=== PATIENT | male | born 1975 | race Asian ===

== ENCOUNTER 2018-06-05 18:29 | Emergency (ER) | payer OTHER, SELFPAY ==
[2018-06-05 18:31] VITALS: BP 131/83; PULSE 82; RESP 16; TEMP 36.6; O2SAT 98; BMI 28.3
--- NOTE | 2018-06-05 19:21 | EKG12_ITS ---
Test Reason : SOB Blood Pressure : / mmHG Vent. Rate : 068 BPM Atrial Rate : 068 BPM P-R Int : 130 ms QRS Dur : 084 ms QT Int : 398 ms P-R-T Axes : 061 038 054 degrees QTc Int : 423 ms Normal sinus rhythm Normal ECG Confirmed by SALLY KIMBROUGH MD ([id number]), desk editor MATT SEVERINO ([id number]) on 06/06/2018 1:12:54 PM Referred By: FRANTZ Confirmed By:SALLY KIMBROUGH MD
--- NOTE | 2018-06-05 19:24 | ED.DCSUM_ITS ---
- ER Visit Summary Date of Service: 06/05/18 Chief Complaint: Burning lung discomfort after a chemical exposure at work History of Present Illness: The patient is a 42 M past medical history of thyroid cancer prior thyroidectomy. 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 Really denies any significant shortness of breath. He does not think he has been wheezing. He denies chest pain of the burning. No recent exertional chest pain or exertional dyspnea. He denies any fever. No significant cough. Physical Examination: Middle-aged male no acute distress vital signs are stable afebrile. He does not look septic or toxic. Pulse ox 90% room air no hypoxia. H EENT exam unremarkable neck nontender. Lungs clear to auscultation bilaterally. No distress. No labored breathing. Heart regular rate and rhythm no murmur. Abdomen soft nontender. Extremities moves all 4. Calves are nontender. Neurologically is awake alert with no focal motor deficits. Test Results: EKG shows Emergency Department Course and Treatment: Clinically and historically I think this is a lung irritation from a chemical exposure. Treatment Plan: Prednisone daily for 3 days. Follow-up with [facility]. Disposition: Discharge Impression: Lung irritation secondary to chemical exposure Workers comp injury This note was generated with [employer] dictation software. It may contain incorrect words, spelling, and punctuation that were not noted in review of the chart prior to signing ED Disposition - Plan for ED Patient: Referrals: Epi Goss MD [Primary Care Provider] -
--- NOTE | 2018-06-05 19:24 | ED.DEP ---
ED Disposition - Plan for ED Patient: Disposition: Home or Assisted Living Instructions: ED Inhalation Chemical Prescriptions: Prednisone [Deltasone] 40 mg PO DAILY 3 Days tab Referrals: [facility] [GROUP OF PHYSICIANS] - 1 Week if not improving Additional Instructions: Prednisone daily for 3 days. Follow-up with corporate care if not improving.
== END 2018-06-05 19:50 | disposition home or self-care (01) ==
PROVIDERS: Emergency Provider Emergency Medicine; Family Provider Family Medicine; PCP Family Medicine
DX: Z77.098 Contact with and (suspected) exposure to other hazardous, chiefly nonmedicinal, chemicals (principal); Z85.850 Personal history of malignant neoplasm of thyroid
CPT/HCPCS: 93005; 99282

== ENCOUNTER → 2019-09-23 13:54 | Outpatient (CLI) | payer OTHER, SELFPAY ==
--- NOTE | 2019-09-23 14:02 | CT_ITS ---
STUDY: CT ABDOMEN AND PELVIS WITHOUT CONTRAST REASON FOR EXAM: Male, 43 years old. Flank pain RADIATION DOSAGE (If Supplied By Facility): CTDIvol = ( 8.81 ) mGy, DLP = ( 444.55 ) mGycm TECHNIQUE: Transaxial images were obtained from the dome of the diaphragm to the symphysis pubis without oral contrast, and without intravenous contrast. Sagittal and coronal images were reconstructed. Individualized dose optimization techniques were used for this CT. COMPARISON: 09/21/2013 FINDINGS: Evaluation of the abdominal viscera is limited in the absence of intravenous contrast. The visualized lung bases are clear. The visualized portions of the heart and pericardium are within normal limits. The patient is status post cholecystectomy. The liver demonstrates an unremarkable unenhanced appearance. The spleen is normal in size. The pancreas demonstrates an unremarkable unenhanced appearance. The adrenal glands are within normal limits. There are nonobstructing stones in the collecting system of the left kidney, measuring up to 9 mm. There are no additional renal or ureteral stones. There is no hydronephrosis. Normal visualized stomach. There is no bowel obstruction or inflammation. The appendix is visualized and appears normal. The aorta is normal in caliber. There is no abdominal or pelvic free air, free fluid, fluid collection or lymphadenopathy. There are no destructive osseous lesions. CT/Abdomen/Pelvis without Cont IMPRESSION: Subcentimeter nonobstructing stones in the collecting system of the left kidney. No additional urinary calculi. No hydronephrosis. No bowel obstruction or inflammation. Normal appendix. Fatty liver. Electronically Signed: Ramiro Gomez, at 20:15 EDT Tel , Service support ,
[2019-09-26 01:08] LABS: Anti-Thyroglobulin AB < 1.0 IU/mL (0.0-0.9); Thyroglobulin, Serum Qt. < 0.1 ng/mL (1.4-29.2)
== END ==
PROVIDERS: PCP Family Medicine; Referring Provider Internal Medicine Nephrology; Visit Provider Internal Medicine Nephrology
DX: N20.0 Calculus of kidney (principal); E89.0 Postprocedural hypothyroidism; C73 Malignant neoplasm of thyroid gland
CPT/HCPCS: 36415; 74176; 84432; 86800

== ENCOUNTER 2020-02-09 17:20 | Emergency (ER) | payer OTHER, SELFPAY ==
[2020-02-09 17:22] VITALS: BP 134/93; PULSE 89; RESP 18; TEMP 36.4; O2SAT 97; BMI 29.6
--- NOTE | 2020-02-09 17:30 | RAD_ITS ---
STUDY: X-RAY CHEST REASON FOR EXAM: Male, 44 years old. sore throat, shortness of breath, cough TECHNIQUE: Single AP portable view of the chest. COMPARISON: 04/17/2016. FINDINGS: The lungs are clear and expanded. There is no demonstrated pleural abnormality. Normal size heart. Normal mediastinum and daniel. Normal visualized pulmonary arteries. Normal visualized aortic arch and descending thoracic aorta. Normal visualized thoracic spine. Normal visualized ribs, clavicles, and shoulders. There is no demonstrated abnormality of the visualized soft tissue structures of the upper abdomen. RAD/Chest 1 View (Portable) IMPRESSION: Normal x-ray examination of the chest. Electronically Signed: Sintia Massey MD at 17:58 EST Tel , Service support ,
--- NOTE | 2020-02-09 18:39 | ED.DCSUM_ITS ---
History of Present Illness Chief Complaint: Sore Throat Detail of Chief Complaint: Sore throat, body aches, short of breath Informant: Patient Onset: Days Context: Gradual Onset Current Severity: Moderate Maximum Severity: Moderate Narrative: Patient presents with 4-day history of shortness of breath and feeling that he cannot get enough air. He has mild cough. He complains of body aches and sore throat. He has been taking Naprosyn every morning and Tylenol in the evenings. He denies known fever or chills. 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 - Past Medical History (1) Hypothyroid Status: Chronic Past Medical History - Allergies and Home Meds Allergies/Adverse Reactions: Allergies No Known Allergies Allergy (Verified 02/09/20 17:22) Primary Care Physician: NOT,DEFINED [NON-STAFF] - Lives: With Family Smoking Status: Never smoker Review of Systems General: Denies: Chills, Fever Eyes: Denies: Visual changes - bilaterally ENT: Reports: Sore throat. Denies: Bilateral ear pain Cardiovascular: Denies: Chest pain Respiratory: Reports: Dyspnea, Cough Gastrointestinal: Denies: Abdominal pain, Vomiting, Diarrhea Genitourinary: Denies: Dysuria Musculoskeletal: Reports: Myalgias. Denies: Extremity Pain Skin: Denies: Rash Hematologic: Denies: Easy bruising, Easy bleeding Allergy: Denies: Uticaria Physical Exam Vital Signs/Narrative: Vital Signs Temp Pulse Resp BP Pulse Ox 02/09/20 17:22 97.6 F L 89 18 134/93 H 97 Inital Vital Signs reviewed: Yes General: Well nourished, Well developed Head: Normocephalic ENT: Moist mucous membranes, - - 2+ tonsils with mild erythema. Uvula midline. Tolerating secretions well with strong voice. Neck: Supple Cardiovascular: Regular rate, Regular rhythm Respiratory: No distress, CTA bilaterally Abdomen: Soft, Nontender Skin: Normal color Neurological: Alert, Oriented x3 Psychological: Normal affect Diagnostic/Tx/Re-eval Impressions Chest X-Ray 02/09/20 17:30 IMPRESSION: Normal x-ray examination of the chest. Electronically Signed: Sintia Massey MD at 17:58 EST Tel , Service support , 02/09/20 17:30 Chest 1 View (Portable) [RAD] Stat 02/09/20 18:58 Mucosa - Nose SARS-CoV-2 Antigen (Rapid) - Final 02/09/20 18:58 Mucosa - Nose Group A Streptococcus Rapid Screen - Preliminary - Medical Decision Making Patient was given naproxen as well as albuterol MDI. Chest x-ray is unremarkable. Rapid strep and Covid are both negative. Patient states he does feel like he is wheezing. His lungs sound clear on auscultation. He will use his inhaler as well as be prescribed a short course of prednisone. 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 He is questioning if he should be on medication for this. I advised him that with a clear chest x-ray at this time I do not feel it would be greatly beneficial. I did recommend he follow-up with his PCP regarding this. ED Disposition - Plan for ED Patient: Disposition: Home or Assisted Living Diagnosis: Viral syndrome Instructions: ED Viral Syndrome (Adult) Prescriptions: Prednisone [Deltasone] 40 mg PO DAILY #10 tab Transmission Status: Pending to [facility] Referrals: Herve Joe MD [STAFF PHYSICIAN] - Jeremy Alberto MD [STAFF PHYSICIAN] - Timoteo Santiago MD [STAFF PHYSICIAN] -
[2020-02-09] MEDS: Naproxen 500 MG Tablet PO (18:51)
[2020-02-09 20:45] VITALS: O2SAT 97
[2020-02-09 21:07] VITALS: BP 129/84; PULSE 69; RESP 14; O2SAT 97
[2020-02-09] MEDS: predniSONE 20 MG Tablet 40 MG PO (21:10)
== END 2020-02-09 21:19 | disposition home or self-care (01) ==
PROVIDERS: Emergency Provider Emergency Medicine
DX: B34.9 Viral infection, unspecified (principal); J02.9 Acute pharyngitis, unspecified; E03.9 Hypothyroidism, unspecified
CPT/HCPCS: 71045; 87426; 87880; 94640; 99283